=== PATIENT | female | born 1935 | race Two or more races ===

== ENCOUNTER 2018-06-12 09:23 | Day surgery (SDC) | payer MEDICARE, BC ==
--- NOTE | 2018-06-11 23:19 | Pre-Procedure Note/Attestation ---
Pre-Procedure Note/Attestation Complete Prior to Procedure Planned Procedure: left - Removal of cataract and placement of intraocular lens , left eye Procedure Narrative: Removal of cataract and placement of intraocular lens, left eye Indications for Procedure Pre-Operative Diagnosis: Cataract, combined, left eye Attestation I attest that I discussed the nature of the procedure; its benefits; risks and complications; and alternatives (and the risks and benefits of such alternatives ), prior to the procedure, with the patient (or the patient's legal termite control service representative). I attest that, if there was a reasonable possibility of needing a blood transfusion, the patient (or the patient's legal termite control service representative) was given the [place] [employer] standardized written summary, pursuant to the Devin Chandu Blood Safety Act ([place] Health and Safety Code # 1645, as amended). I attest that I re-evaluated the patient just prior to the surgery and that there has been no change in the patient's H&P, except as documented below: Jacek Edward MD Jun 11, 2018 23:19
[~2018-06-12] VITALS: Ht 157.5 cm; Wt 88.0 kg
[~2018-06-12 09:23] MED LIST: Pred Forte 1% Opth Susp 1ml LEFT EYE ONE
[2018-06-12] MEDS ORDERED: Maxitrol Opth Oint 3.5gm ONE (09:48)
[2018-06-12] MEDS ORDERED: Fluorescein Strips ONE (09:48)
[2018-06-12] MEDS ORDERED: EPINEPHrine 1mg/1ml Amp ONE (09:48)
[2018-06-12] MEDS ORDERED: Lidocaine 4% Amp ONE (09:48)
[2018-06-12] MEDS ORDERED: Lidocaine 1% MPF 10mg/ml 5ml ONE ×2 (09:48→11:29)
[2018-06-12] MEDS ORDERED: Carbachol 0.01% Op Soln 1.5ml vial ONE (09:48)
[2018-06-12] MEDS ORDERED: Pred Forte 1% Opth Susp 1ml ONE ×2 (09:49→10:03)
[2018-06-12] MEDS ORDERED: Dexamethasone 4mg/ml vial ONE (09:49)
[2018-06-12] MEDS ORDERED: Timolol 0.5% Op Soln 2.5ml ONE (09:49)
[2018-06-12] MEDS ORDERED: BSS 500ml btl ONE (09:49)
[2018-06-12] MEDS ORDERED: Tetracaine 0.5% Opth 4ml Soln ONE ×2 (09:50→10:03)
[2018-06-12] MEDS ORDERED: Sodium Hyaluronate 10 mg/ml 0.85ml ONE (09:50)
[2018-06-12] MEDS ORDERED: BSS 15ml BTL ONE (09:50)
[2018-06-12] MEDS ORDERED: Povidone-Iodine 5% opth solution ONE (09:50)
[2018-06-12] MEDS ORDERED: Tobradex Opth Susp 2.5ml ONE (10:03)
[2018-06-12] MEDS ORDERED: Phenylephrine 10% Opth Soln 5ml ONE (10:03)
[2018-06-12] MEDS ORDERED: Akten 3.5% 1ml Btl ONE (10:03)
[2018-06-12] MEDS ORDERED: Tropicamide 1% Opth 15ml Soln ONE (10:03)
[2018-06-12] MEDS ORDERED: Cyclopentolate 1% Opth Sol 2ml ONE (10:03)
[2018-06-12] MEDS: Cyclopentolate 1% Opth Sol 2ml LEFT EYE SCH ×3 (10:10→10:35)
[2018-06-12] MEDS: Phenylephrine 10% Opth Soln 5ml LEFT EYE SCH ×3 (10:10→10:35)
[2018-06-12] MEDS: Tropicamide 1% Opth 15ml Soln LEFT EYE SCH ×3 (10:10→10:35)
[2018-06-12] MEDS: Akten 3.5% 1ml Btl LEFT EYE SCH ×3 (10:10→10:34)
[2018-06-12] MEDS: Tobradex Opth Susp 2.5ml LEFT EYE SCH ×3 (10:11→10:35)
[2018-06-12] MEDS: Tetracaine 0.5% Opth 4ml Soln LEFT EYE SCH ×3 (10:11→10:35)
[2018-06-12] MEDS ORDERED: CRESTOR10 M2 ORAL (10:20)
[2018-06-12 10:38] VITALS: BP 145/81
--- NOTE | 2018-06-12 11:28 | Anethesia Preoperative Eval ---
Anesthesia Pre-op PMH/ROS General Date of Evaluation: Jun 12, 2018 Anesthesiologist: Darius ASA Score: ASA 2 Mallampati Score Class I : Soft palate, uvula, fauces, pillars visible Class II: Soft palate, uvula, fauces visible Class III: Soft palate, base of uvula visible Class IV: Only hard plate visible Mallampati Classification: Class II Surgeon: Cheyanne Diagnosis: Left cataract Surgical Procedure: Left cataract extraction with IOL Anesthesia History: none Family History: no anesthesia problems Allergies: Coded Allergies: CIPROFLOXACIN (Verified Allergy, Severe, 06/12/18) SKIN RASH SULFA (SULFONAMIDE ANTIBIOTICS) (Verified Allergy, Severe, 06/12/18) GENERAL SWELLING ASPIRIN (Verified Adverse Reaction, Severe, 06/12/18) ABD PAIN,DIARRHEA Uncoded Allergies: ORAL ANTIBIOTICS (Adverse Reaction, Severe, 06/12/18) ABD PAIN,DIARRHEA Medications: see eMAR Past Medical History Cardiovascular: Reports: HTN; Denies: CAD, RI, valve dz, arrhythmia, other Pulmonary: Denies: asthma, COPD, ZION, other Gastrointestinal/Genitourinary: Denies: GERD, CRI, ESRD, other Neurologic/Psychiatric: Denies: dementia, CVA, depression/anxiety, TIA, other Endocrine: Reports: hypothyroidism; Denies: DM, steroids, other HEENT: Reports: cataract (L), cataract (R); Denies: glaucoma, [place]ES (L), [place] (R), other Hematology/Immune: Denies: anemia, DVT, bleeding disorder, other Musculoskeletal/Integumentary: Reports: OA; Denies: RA, DJD, DDD, edema, other PSxH Narrative: GLENNY, BTL, lumbar sx Anesthesia Pre-op Phys. Exam Physician Exam Last Vital Signs Date Time Temp Pulse Resp B/P (MAP) Pulse Ox O2 Delivery O2 Flow Rate FiO2 06/12/18 10:38 97.2 76 20 145/81 (102) 97 97.2 06/12/18 10:24 Room Air Constitutional: NAD Cardiovascular: RRR Respiratory: CTA Airway Exam Mallampati Score: Class II MO: full ROM: full Anesthesia Pre-op A/P Labs see chart Studies Pre-op Studies: EKG - sr Risk Assessment & Plan Assessment: ASA II Plan: MAC Status Change Before Surgery: No Pre-Antibiotics Drug: N/A Samantha Vick MD Jun 12, 2018 11:28
[2018-06-12] MEDS ORDERED: fentaNYL 100 mcg/2 mL IV ONE (11:29)
[2018-06-12] MEDS ORDERED: Propofol 200mg/20ml IV ONE (11:29)
[2018-06-12] MEDS ORDERED: Midazolam 2mg/2ml Inj ONE (11:29)
[2018-06-12] MEDS ORDERED: Sterile Water Irrig 1000ml IRRIG ONE (11:30)
[2018-06-12] MEDS ORDERED: NS Irrig 1000ml ONE (11:30)
[2018-06-12] MEDS ORDERED: LR 1000ml ONE (11:30)
[2018-06-12] MEDS ORDERED: DiphenhydrAMINE 50mg/ml Inj ONE (11:30)
[2018-06-12] MEDS ORDERED: LR 1000ml 1,000 ML IVLG SCH (11:41)
[2018-06-12] MEDS ORDERED: DiphenhydrAMINE 50mg/ml Inj IVP PRN (11:45)
[2018-06-12] MEDS ORDERED: Labetalol 5mg/ml 20ml vial IV PRN (11:45)
--- NOTE | 2018-06-12 12:02 | Immediate Post-Op Evaluation ---
Immediate Post-Op Evalulation Immediate Post-Op Evalulation Procedure: Left cataract extraction with IOL Date of Evaluation: Jun 12, 2018 Time of Evaluation: 12:37 IV Fluids: 300 Blood Products: 0 Estimated Blood Loss: 0 Urinary Output: 0 Blood Pressure Systolic: 143 Blood Pressure Diastolic: 70 Pulse Rate: 71 Respiratory Rate: 16 O2 Sat by Pulse Oximetry: 98 Temperature (Fahrenheit): 97.7 Pain Score (1-10): 0 Nausea: No Vomiting: No Complications 0 Patient Status: awake, reacts, patent, none Hydration Status: adequate Drug: N/A Samantha Vick MD Jun 12, 2018 12:02
[2018-06-12 12:32] VITALS: BP 143/70
--- NOTE | 2018-06-12 12:33 | Discharge Instructions ---
Discharge Instructions Discharge Instructions Follow Up Orders Wear shield at all times except to place eye drops Continue preop eye drops followup in Dr Sanchez's office tomorrow at 10:45 AM For Congestive Heart Failure Reminder Report to your physician any weight gain of 5 pounds or more in one week. Jacek Sanchez MD Jun 12, 2018 12:33
--- NOTE | 2018-06-12 12:35 | Brief Operative Note ---
Immediate Post Operative Note Operative Note Pre-op Diagnosis: Cataract, combined, left eye Procedure: Phaco PC IOL, OD Post-op Diagnosis: same as pre-op Surgeon: Criss Edward MD Anesthesiologist: Dr Flowers Anesthesia: local, MAC Specimen: none Complications: none Fluids: see chart Implant(s) used?: Yes Jacek Edward MD Jun 12, 2018 12:35
--- NOTE | 2018-06-12 12:35 | 48 Hour Post Anesthesia Eval ---
Post Anesthesia Evaluation Procedure: Left cataract extraction with IOL Date of Evaluation: Jun 12, 2018 Airway: patent Nausea: No Vomiting: No Pain Intensity: 0 Hydration Status: adequate Cardiopulmonary Status: at baseline Mental Status/LOC: patient returned to baseline Post-Anesthesia Complications: 0 Follow-up care needed: ready to discharge Samantha Vick MD Jun 12, 2018 12:35
[2018-06-12 12:37] VITALS: BP 130/64
[2018-06-12 12:42] VITALS: BP 130/65
[2018-06-12 13:20] VITALS: BP 142/82
[2018-06-12 13:50] VITALS: BP 136/81
--- NOTE | 2018-06-12 20:45 | Operative Note - Dictated ---
DATE OF OPERATION: 06/12/2018 SURGEON: Jacek Edward M.D. ASE MASTER MECHANIC SURGEON: None. ANESTHESIOLOGIST: Samantha Flowers M.D. ANESTHESIA: Local/standby/monitored anesthesia care. PREOPERATIVE DIAGNOSIS: Cataract, combined, left eye. POSTOPERATIVE DIAGNOSIS: Cataract, combined, left eye. If the left eye. PROCEDURES: 1. Phacoemulsification of cataract, left eye. 2. Placement of posterior chamber intraocular lens, left eye. SPECIMENS: None. COMPLICATIONS: None. INDICATIONS FOR SURGERY: The patient has had the painless progressive decrease in visual acuity in the left eye secondary to cataract. The patient understands the risks of surgery including infection, bleeding, need for further surgery, no improvement in vision, loss of vision, loss of the eye, loss of life, glaucoma, retinal detachment, understands these risks and elects to proceed with surgery. FINDINGS: The patient had a +3 nuclear sclerotic cataract as well as +1 to +2 cortical cataract. OPERATIVE NOTE: After informed consent was obtained, the patient was brought to the operative room and placed in supine position. Cardiac and respiratory monitors were attached. A time-out was performed and all criteria were met and everyone in the room agreed. The left eye was then draped and prepped in a sterile manner for ocular surgery. A lid speculum was placed in the eye. A 1% lidocaine preservative-free was injected at the 2 o'clock limbus. The conjunctival peritomy from approximately 2 o'clock to 3 o'clock was made and dissected posteriorly. Hemostasis was maintained with bipolar cautery. A 2.6 mm limbal incision was made centered at approximately 2 o'clock and dissected anteriorly. A paracentesis was made at approximately 3:30 and Shugarcaine was injected into the anterior chamber followed by Healon. The anterior chamber was then entered using a 2.6 mm keratome through the limbal incision. An anterior capsulorrhexis was then performed. Hydrodissection and hydrodelineation of the lens was then performed. The lens was then phacoemulsified using divide and conquer four-quadrant technique. Residual cortical material was then aspirated. The lens was taken from its package, placed into the cartridge, and the tip of the cartridge was placed through the limbal incision. The lens was injected into the capsular bag and centered nicely with a Sinskey hook. Healon was aspirated from the anterior chamber and capsular bag. One 10-0 nylon interrupted suture was placed through the limbal incision. All wounds were also hydrated and closed. The wound was checked and found to be watertight. The knot was rotated and buried. The conjunctiva was then closed with forceps cautery. The lid speculum and drapes removed from the eye and drops of Pred Forte and TobraDex were applied to the eye followed by Maxitrol ointment and a shield. The patient tolerated the procedure well and left the operating room awake, alert, and in stable condition. Jacek Edward M.D. DR: MARILOU JOB#: [id number] CC:
== END 2018-06-12 14:05 | disposition home or self-care (01) ==
LOC: SUR 09:23
DX: H25.812 Combined forms of age-related cataract, left eye (principal); K21.9 Gastro-esophageal reflux disease without esophagitis; E78.5 Hyperlipidemia, unspecified; M48.00 Spinal stenosis, site unspecified; E66.9 Obesity, unspecified; I10 Essential (primary) hypertension; E03.9 Hypothyroidism, unspecified; M19.90 Unspecified osteoarthritis, unspecified site; G89.29 Other chronic pain; Z90.710 Acquired absence of both cervix and uterus; Z90.721 Acquired absence of ovaries, unilateral; Z98.51 Tubal ligation status; Z88.6 Allergy status to analgesic agent; Z88.1 Allergy status to other antibiotic agents; Z88.2 Allergy status to sulfonamides
CPT/HCPCS: 66984; J0171; J1100; J1200; J2250; J2704; J3010; J7120; V2632; 94003; 94150